=== PATIENT | female | born 1975 | race African-American/Black ===

== ENCOUNTER 2017-05-04 23:08 | Emergency (ER) | payer BC, OTHER ==
[~2017-05-04] VITALS: Ht 167.6 cm; Wt 63.5 kg
[~2017-05-04 23:08] MED LIST: BACTRIM DS TABL1 TA1 PO; LEVAQUIN PO; MACROBID100 M1 PO; METROGEL60 GM TOP; NO MEDICATIONS; PYRIDIUM100 MG PO; SINGULAIR
[2017-05-04 23:58] LABS: URINE SOURCE CLEAN CATCH
[2017-05-05 00:01] LABS: URINE APPEARANCE CLEAR; URINE BILIRUBIN NEG (NEG); URINE BLOOD NEG (NEG); URINE COLOR YELLOW; URINE GLUCOSE NEG (NORM); URINE LEUKOCYTE ESTERASE NEG (NEG); URINE NITRATE NEG (NEG); URINE PROTEIN NEG (NEG); URINE SPECIFIC GRAVITY >=1.030 (1.003-1.035)
[2017-05-05 00:03] LABS: URINE KETONE 2+ (NEG)
[2017-05-05 00:04] LABS: MICRO INDICATED? NO
[2017-05-07 09:01] LABS: CHLAMYDIA TRACH Not Detected (Not Detected); N GONOR Not Detected (Not Detected)
== END 2017-05-05 00:56 | disposition home or self-care (01) ==
LOC: SED 23:08
PROVIDERS: Student in an Organized Health Care Education/Training Program
DX: N73.9 Female pelvic inflammatory disease, unspecified (principal)
CPT/HCPCS: 81003; 84703; 87491; 87591; 87808; 87905; 96372; 99284; J0696